=== PATIENT | female | born 1985 | race Caucasian/White ===

== ENCOUNTER 2016-03-19 10:36 | Emergency (ER) | payer OTHER ==
[~2016-03-19 10:36] MED LIST: FERR324T4 PO; MACR100C PO; PREN29CH PO
[2016-03-19] MEDS ORDERED: LACTATED RINGER'S 1000 ML INJ 1,000 ML IV SCH (10:51)
[2016-03-19] MEDS ORDERED: ONDANSETRON HCL 4 MG/2 ML VIAL IV ONE (11:00)
[2016-03-19 12:09] LABS: HEMATOCRIT 32.6 % (35.0-46.0); MEAN CELL VOLUME 87.9 FL (80.0-100.0); MEAN CORPUSCULAR HEMOGLOBIN 30.5 PG (27.0-34.0); MEAN CORPUSCULAR HGB CONC 34.7 % (32.0-36.0); PLATELET COUNT 151 TH/MM3 (150-450); RED BLOOD COUNT 3.71 MIL/MM3 (4.00-5.30); RED CELL DISTRIBUTION WIDTH 12.6 % (11.6-17.2); REVIEW FLAG FINAL; WHITE BLOOD COUNT 5.4 TH/MM3 (4.0-11.0)
--- NOTE | 2016-03-19 12:10 | PD ---
HPI Travel History International Travel<30 Days: No Contact w/Intl Traveler<30Days: No Known Affected Area: No History of Present Illness HPI This patient is a 31-year-old 5 para 20-2 EDC is June 18, 2016 presently at 27 weeks even she presents chief complaint of nausea and vomiting which began last night she awoke this morning and had a temperature of 101.7 Mild headache no diarrhea no burning when she urinates no cough no sore throat the baby is active no rupture of membranes no vaginal bleeding no contractions care with [facility] she was seen yesterday at which time she complained of itching of her hands and Dr. Donohue ordered violence which she has not had done yet she must be fasting and will have to have that done as an outpatient History Past Medical History Narrative Medical Patient is allergic to latex Reglan and amoxicillin no major medical problems Obstetric History Obstetric History First baby born October 2011 male weight 8 lbs. 10 oz. vaginal delivery Second baby born October 2009 female weight 9 lbs. 2 oz. vaginal delivery Spontaneous AB 2 Past Surgical History Narrative Surgical D&C 2 Family History Narrative Family History Diabetes cancer Family History: Negative Social History Alcohol Use: No Tobacco Use: No Substance Abuse: No Allergies-Medications (Allergen,Severity, Reaction): Coded Allergies: Amoxicillin (Verified Allergy, Severe, Anaphylaxis, 10/19/15) Reglan (Verified Allergy, Severe, Anaphylaxis, 10/19/15) Latex (Verified Allergy, Mild, Rash, 10/19/15) Home Meds Active Scripts Nitrofurantoin Monohyd Macro (Macrobid)100 Mg [id number] Mg PO BID 7 Days Prov:Anel Durán MD 10/19/15 Reported Medications Ferrous Sulfate 324 Mg [id number] Mg PO DAILY 10/23/14 Prenata1 Chw 1 Chw Chw1 Chw PO 04/10/14 Review of Systems General / Constitutional: Fever Gastrointestinal: Nausea, Vomiting Physical Exam Narrative GENERAL: Well-nourished, well-developed patient. Alert oriented 3 and cooperative in no acute distress CARDIOVASCULAR: Regular rate and rhythm without murmurs, gallops, or rubs. RESPIRATORY: Breath sounds equal bilaterally. No accessory muscle use. ABDOMEN/GI: Gravid consistent with 27 weeks soft nontender no palpable contractions no epigastric or right upper quadrant tenderness Gravid to [-] weeks size 27 Fundal Height: [-] GENITOURINARY: Pelvic exam is deferred as the patient has no rupture of membranes no vaginal bleeding no contractions External Genitalia: intact and normal in appearance BUS glands: [-] Cervix: [-] Dilatation: [-] Effacement: [-] Station: [-] Presentation: [-] Membranes: ruptured] Uterine Contractions: [-] None FHT's: Category: [-] 1 Baseline: [-]140 Reactive: [-] + Variability: [-] Moderate Decels: [-] 0 EXTREMITIES: No cyanosis or edema. 2+ NEUROLOGICAL: Awake and alert. Motor and sensory grossly within normal limits. Five out of 5 muscle strength in all muscle groups. Normal speech. Data Data Vital Signs Reviewed: Yes (blood pressures 104/69 pulse is 97.1 pulse 81 respiration is 20) Orders Vital Signs (Adult) .ON ADMISSION (03/19/16 10:51) ^ Labor Status (03/19/16 10:51) Urinalysis - C+S If Indicated (03/19/16 10:51) ^ Hydration (03/19/16 10:51) Cbc No Diff, Includes Plts (03/19/16 10:51) Comprehensive Metabolic Panel (03/19/16 10:51) Uric Acid (03/19/16 10:51) Lactated Ringer's 1000 Ml Inj (Lr 1000 M (03/19/16 10:51) Ondansetron Inj (Zofran Inj) (03/19/16 11:00) Ob/Psych Drug Screen, Urine (03/19/16 10:51) [facility] Medical Record Reviewed: No Interpretation(s) 31-year-old at 27 weeks Not in labor No rupture of membrane Category 1 tracing Nausea vomiting of Rule out UTI Narrative Course / MDM Patient feeling much better after Zofran and IV fluid hydration laboratory data within normal limits culture is not indicated on her urine Tyzine is 3.3 however patient now tolerating liquids and can rapidly be replaced with diet We'll discharge patient home kick count Zofran 4 mg by mouth every 6 hours when necessary for nausea She is to have the bile salts done as an outpatient and Dr. Donohue will follow- up Plan External monitoring IV fluid hydration CBC CMP uric acid urinalysis Urine drug screen Clear liquid Reevaluation Physician Communication Dr. Donohue aware that the patient is on labor and delivery Diagnosis Diagnosis: Primary Impression: Extreme immaturity of , gestational age 27 completed weeks Additional Impression: 27 weeks gestation of Disposition: 01 DISCHARGE HOME Condition: Stable Nasima Mcqueen MD Mar 19, 2016 12:10
[2016-03-19 12:32] LABS: BLOOD, URINE NEG (NEG); COMMENT (UR) CULT NOT INDICATED; CULTURE IF INDICATED CULT NOT INDICATED; GLUCOSE,URINE NEG (NEG); KETONE, URINE NEG (NEG); NITRITE,URINE NEG (NEG); SQUAMOUS EPITHELIAL CELL URINE 7 /hpf (0-5); URINE COLOR YELLOW (YELLW/STRAW)
[2016-03-19 12:36] LABS: ANION GAP 10 MEQ/L (5-15); AST (GOT) 13 U/L (15-37); BICARBONATE 24.8 MEQ/L (21.0-32.0); BLOOD UREA NITROGEN 5 MG/DL (7-18); CHLORIDE 102 MEQ/L (98-107); GLOMERULAR FILTRATION RATE 275 ML/MIN (>89); POTASSIUM 3.3 MEQ/L (3.5-5.1); SODIUM (NA) 137 MEQ/L (136-145); URIC ACID 4.7 MG/DL (2.6-6.0)
[2016-03-19 12:39] LABS: ALKALINE PHOSPHATASE 34 U/L (45-117); ALT (GPT) 16 U/L (10-53); TOTAL BILIRUBIN ADULT 0.4 MG/DL (0.2-1.0)
[2016-03-19 12:51] LABS: AMPHETAMINE, URINE NEG (NEG); BARBITURATES, URINE NEG (NEG); COCAINE, URINE NEG (NEG)
[2016-03-24 07:35] LABS: BATH SALTS (MDPV) UR NEG (NEG); ECSTASY (MDMA) UR NEG (NEG); HEROIN (6-ACETYLMORPHINE) UR NEG (NEG); K2 SPICE UR NEG (NEG); OBMETHADONE UR NEG (NEG); OXYCODONE (PERCODAN) NEG (NEG); PHENCYCLIDINE URINE NEG (NEG)
[2016-05-30] MEDS ORDERED: DOXY10TA (12:32)
== END 2016-03-19 13:15 | disposition home or self-care (01) ==
LOC: HOBED 10:36
DX: O21.0 Mild hyperemesis gravidarum (principal); Z3A.27 27 weeks gestation of pregnancy
CPT/HCPCS: 80053; 80307; 81001; 84550; 85027; 96361; 96374; 99284; G0481; J2405; J7120; 80352; 80354; 80356; 80358; 80359; 80371; 83992; G0480

== ENCOUNTER 2016-04-23 09:53 | Emergency (ER) | payer OTHER, BC ==
--- NOTE | 2016-04-23 11:24 | PD ---
HPI Chief Complaint Presents with lower abdominal pressure for several days. Date Seen: Apr 23, 2016 Travel History International Travel<30 Days: No Contact w/Intl Traveler<30Days: No Known Affected Area: No History of Present Illness HPI EGA 32w 0d. Patient with c/o lower abdominal pressure for several days. Denies contractions/LOF/VB. Para: 2 : 5 : 2 History Past Medical History Medical History: Denies Significant Hx Past Surgical History Surgical History: No Previous Surgery Family History Family History: Negative Social History Alcohol Use: No Tobacco Use: No Substance Abuse: No Allergies-Medications (Allergen,Severity, Reaction): Coded Allergies: Amoxicillin (Verified Allergy, Severe, Anaphylaxis, 10/19/15) Reglan (Verified Allergy, Severe, Anaphylaxis, 10/19/15) Latex (Verified Allergy, Mild, Rash, 10/19/15) Home Meds Active Scripts Nitrofurantoin Monohyd Macro (Macrobid)100 Mg [id number] Mg PO BID 7 Days Prov:Anel Durán MD 10/19/15 Reported Medications Ferrous Sulfate 324 Mg [id number] Mg PO DAILY 10/23/14 Prenata1 Chw 1 Chw Chw1 Chw PO 04/10/14 Physical Exam Narrative GENERAL: Well-nourished, well-developed patient. SKIN: Warm and dry. HEAD: Normocephalic and atraumatic. EYES: No scleral icterus. No injection or drainage. ENT: No nasal drainage noted. Mucous membranes pink. Airway patent. NECK: Supple, trachea midline. No JVD. CARDIOVASCULAR: Regular rate and rhythm without murmurs, gallops, or rubs. RESPIRATORY: Breath sounds equal bilaterally. No accessory muscle use. BREASTS: Bilateral exam showed no masses , no retractions, no nipple discharge. ABDOMEN/GI: Abdomen soft, non-tender, bowel sounds present, no rebound, no guarding Gravid to [-] weeks size Fundal Height: [-] GENITOURINARY: External Genitalia: intact and normal in appearance BUS glands: [-] Cervix: [-] Dilatation: [FT] Effacement: [20] Station: [-3] Presentation: [-] Membranes: [intact] Uterine Contractions: [-] FHT's: Category: [1] Baseline: [140s] Reactive: [yes] Variability: [moderate] Decels: [none] Kitzmiller- no contractions EXTREMITIES: No cyanosis or edema. BACK: Nontender without obvious deformity. No CVA tenderness. NEUROLOGICAL: Awake and alert. Motor and sensory grossly within normal limits. Five out of 5 muscle strength in all muscle groups. Normal speech. Data Data Vital Signs Reviewed: Yes Orders UA MDM Interpretation(s) Abdominal pain in . False labor. Plan Will d/c home. labor precautions given. All questions answered. Diagnosis Diagnosis: Primary Impression: 32 weeks gestation of Additional Impression: Abdominal pain during in third trimester Disposition: DISCHARGE HOME Condition: Stable Ranjana Lindsey MD Apr 23, 2016 11:24
[2016-04-23 12:54] LABS: BACTERIA, URINE RARE /hpf; BLOOD, URINE NEG (NEG); GLUCOSE,URINE NEG (NEG); KETONE, URINE NEG (NEG); NITRITE,URINE NEG (NEG); PH, URINE 7.5 (5.0-8.5); SQUAMOUS EPITHELIAL CELL URINE 3 /hpf (0-5); TRANSITIONAL EPI CELLS, URINE <1 /hpf; URINE COLOR YELLOW (YELLW/STRAW)
[2016-04-23 12:57] LABS: COMMENT (UR) CULT NOT INDICATED; CULTURE IF INDICATED CULT NOT INDICATED
[2016-05-30] MEDS ORDERED: DOXY10TA (12:32)
== END 2016-04-23 13:40 | disposition home or self-care (01) ==
LOC: HOBED 09:53
DX: O26.893 Other specified pregnancy related conditions, third trimester (principal); R10.9 Unspecified abdominal pain; Z3A.32 32 weeks gestation of pregnancy
CPT/HCPCS: 59025; 81001

== ENCOUNTER 2016-05-30 15:29 | Inpatient (IN) | payer OTHER, MEDICAID ==
[2016-05-30] VITALS (54 sets, daily range): BP systolic 96–152; BP diastolic 52–97; PULSE 65–144; RESP 18; TEMP 97.5–97.8; O2SAT 99
[~2016-05-30] VITALS: Ht 149.9 cm; Wt 70.3 kg
[~2016-05-30 15:29] MED LIST changes: -IBUP-232 PO; -SENN1TAB PO
[2016-05-30] MEDS ORDERED: MEASLES, MUMPS, RUBELLA VACCINE 0.5 ML VIAL SQ ONE (16:00)
[2016-05-30] MEDS ORDERED: DIPHTH/TETANUS/ACEL PERTUSSIS (BOOSTER) 0.5 ML VIAL/PFS IM ONE (16:00)
[2016-05-30] MEDS ORDERED: LACTATED RINGER'S 1000 ML INJ 1,000 ML IV PRN (16:08)
[2016-05-30] MEDS ORDERED: OXYTOCIN 30 UNITS-500ML PREMIX 500 ML IV ONE (16:15)
[2016-05-30] MEDS ORDERED: MINERAL OIL 10 ML VIAL TOPICAL PRN (16:15)
[2016-05-30] MEDS ORDERED: SODIUM CHLORID 0.9% 500 ML INJ 500 ML IV PRN (16:15)
[2016-05-30] MEDS ORDERED: LIDOCAINE HCL 1% 50 ML VIAL INFIL PRN (16:15)
[2016-05-30] MEDS ORDERED: CITRIC ACID-SODIUM CITRATE LIQ 30 ML UDC PO SCH (16:15)
[2016-05-30] MEDS ORDERED: LIDOCAINE HCL 1% 50 ML VIAL I-DERMAL PRN (16:15)
--- NOTE | 2016-05-30 16:25 | HHI.HP ---
History & Physical H&P Patient Name: Zo Bundy Unit Number: [id number] Date of : 1985 Patient Status: Registered Emergency Room Attending Doctor: Jack Mcallister MD HPI HPI Chief Complaint abdominal pressure, lost mucous plug Date Seen: May 30, 2016 Time Seen: 12:17 Travel History International Travel<30 Days: No Known Affected Area: No History of Present Illness HPI 31-year-old 5 para 2 at 37 weeks 2 days gestation with complaint of watery discharge and contractions. She denies any bleeding. Para: 5 : 2 Miscarriage: 2 History (Limited) History Past Medical History Medical History: Denies Significant Hx Obstetric History Obstetric History 2 prior first trimester SABs with D&C GBS negative 2 prior term vaginal deliveries Uncomplicated course with estimated weight at the 92nd percentile in third trimester. Past Surgical History Narrative Surgical D&C x2 Family History Family History: Negative Social History Alcohol Use: No Tobacco Use: No Substance Abuse: No Allergies-Medications Allergies-Medications (Allergen,Severity, Reaction): Coded Allergies: Amoxicillin (Verified Allergy, Severe, Anaphylaxis, 10/19/15) Reglan (Verified Allergy, Severe, Anaphylaxis, 10/19/15) Latex (Verified Allergy, Mild, Rash, 10/19/15) Home Meds Active Scripts Nitrofurantoin Monohyd Macro (Macrobid)100 Mg [id number] Mg PO BID 7 Days Prov:Anel Durán MD 10/19/15 Reported Medications Ferrous Sulfate 324 Mg Huq274 Mg PO DAILY 10/23/14 Without A Vit W/ Fe F (Prenata)1 Chw Chw1 Chw PO 04/10/14 ROS Review of Systems Except as stated in HPI: all other systems reviewed are Neg Gastrointestinal: Vomiting (present daily throughout the ), Diarrhea ( less than 2 per day 2 days) Physical Exam Physical Exam Narrative GENERAL: Well-nourished, well-developed patient. SKIN: Warm and dry. HEAD: Normocephalic and atraumatic. EYES: No scleral icterus. No injection or drainage. ENT: No nasal drainage noted. Mucous membranes pink. Airway patent. NECK: Supple, trachea midline. No JVD. CARDIOVASCULAR: Regular rate and rhythm without murmurs, gallops, or rubs. RESPIRATORY: Breath sounds equal bilaterally. No accessory muscle use. ABDOMEN/GI: Abdomen soft, non-tender, bowel sounds present, no rebound, no guarding Gravid to [-] weeks size Fundal Height: [-] GENITOURINARY: External Genitalia: intact and normal in appearance BUS glands: [-] Cervix: [-] Dilatation: [5] Effacement: [60-] Station: [-2-] Presentation: [-v] Membranes: [ruptured] Uterine Contractions: [mild irreg-] FHT's: Category: [1-] Baseline: [-] Reactive: [-y] Variability: [-] Decels: [-] EXTREMITIES: No cyanosis or edema. BACK: Nontender without obvious deformity. No CVA tenderness. NEUROLOGICAL: Awake and alert. Motor and sensory grossly within normal limits. Five out of 5 muscle strength in all muscle groups. Normal speech. Data Data Data Vital Signs Reviewed: Yes Assessment: 37-2/7 week gestation multiparous female with ruptured membranes and irregular contractions Plan: Admit for labor management. Dr. Snider is aware of the patient's presence. Jack Mcallister MD, Stephen A MD May 30, 2016 16:24
[2016-05-30] MEDS ORDERED: SODIUM CHLOR 0.9% 1000 ML INJ 1,000 ML IV PRN (16:28)
[2016-05-30] MEDS ORDERED: OXYTOCIN 30 UNITS-500ML PREMIX 500 ML IV SCH ×2 (17:00→18:00)
[2016-05-30] MEDS ORDERED: LACTATED RINGER'S 1000 ML INJ 1,000 ML IV SCH (17:00)
[2016-05-30 17:03] LABS: AUTOMATED NEUTROPHIL # 7.9 TH/MM3 (1.8-7.7); BASOPHIL % 0.3 % (0.0-2.0); EOSINOPHIL % 0.5 % (0.0-4.0); HEMATOCRIT 30.6 % (35.0-46.0); HEMO FLAGS DIFF FINAL; LYMPH % 11.1 % (9.0-44.0); MEAN CELL VOLUME 81.4 FL (80.0-100.0); MEAN CORPUSCULAR HEMOGLOBIN 27.9 PG (27.0-34.0); MEAN CORPUSCULAR HGB CONC 34.2 % (32.0-36.0); MONO % 4.4 % (0.0-8.0); NEUT % 83.7 % (16.0-70.0); PLATELET COUNT 165 TH/MM3 (150-450); RED BLOOD COUNT 3.76 MIL/MM3 (4.00-5.30); RED CELL DISTRIBUTION WIDTH 13.9 % (11.6-17.2); WHITE BLOOD COUNT 9.4 TH/MM3 (4.0-11.0)
[2016-05-30] MEDS ORDERED: fentaNYL 2MCG-BUPIV 0.125% INJ 100 ML ONE (17:05)
[2016-05-30] MEDS ORDERED: ePHEDrine/NS 25 MG/5 ML SYR ONE (17:23)
[2016-05-30] MEDS ORDERED: fentaNYL 2MCG-BUPIV 0.125% 100 ML EPIDURAL SCH (18:00)
[2016-05-30] MEDS ORDERED: NO SYSTEM NARCOTICS XX PRN (18:00)
[2016-05-30] MEDS ORDERED: ePHEDrine/NS 25 MG/5 ML SYR IV PRN (18:00)
[2016-05-30] MEDS ORDERED: DO NOT ADMINISTER ANTICOAGULANTS XX PRN (18:00)
[2016-05-30 18:25] LABS: BACTERIA, URINE RARE /hpf; BLOOD, URINE NEG (NEG); COMMENT (UR) CULTURE INDICATED; CULTURE IF INDICATED CULTURE INDICATED; GLUCOSE,URINE NEG (NEG); KETONE, URINE TRACE mg/dL (NEG); MUCUS URINE MANY /lpf (OCC); NITRITE,URINE NEG (NEG); SQUAMOUS EPITHELIAL CELL URINE 6 /hpf (0-5); URINE COLOR YELLOW (YELLW/STRAW)
[2016-05-30] MEDS ORDERED: ACETAMINOPHEN 500 MG CPLT PO ONE (20:00)
--- NOTE | 2016-05-30 20:12 | PD.LABORPN ---
Subjective Subjective feeling comfortable w/ epidural Objective Vital Signs Vital Signs Date Time Temp Pulse Resp B/P Pulse Ox O2 Delivery O2 Flow Rate FiO2 05/30/16 19:54 71 113/64 05/30/16 19:45 73 111/71 05/30/16 19:30 78 120/82 05/30/16 19:25 99 05/30/16 19:25 79 05/30/16 19:20 82 05/30/16 19:15 99 05/30/16 19:15 83 132/85 05/30/16 19:15 77 05/30/16 19:10 83 05/30/16 19:10 99 05/30/16 19:05 99 05/30/16 19:05 80 05/30/16 19:01 97.8 05/30/16 19:00 99 05/30/16 19:00 85 05/30/16 19:00 80 120/78 05/30/16 18:55 79 05/30/16 18:50 77 05/30/16 18:45 82 131/90 05/30/16 18:45 76 17 18:40 81 17 18:35 78 05/30/16 18:30 78 122/82 05/30/16 18:30 74 05/30/16 18:25 78 05/30/16 18:20 77 05/30/16 18:15 98 133/83 05/30/16 18:15 73 05/30/16 18:11 97.5 05/30/16 18:10 77 05/30/16 18:08 75 18 125/74 05/30/16 18:05 73 05/30/16 18:00 83 17 18:00 78 144/87 05/30/16 17:55 79 17 17:50 74 17 17:46 81 131/70 17 17:46 81 17 17:45 74 17 17:45 74 17 17:40 77 17 17:40 84 134/84 17 17:35 93 128/97 17 17:35 101 17 17:30 74 106/70 17 17:30 106 05/30/16 17:28 78 131/72 05/30/16 17:25 72 125/84 05/30/16 17:25 68 05/30/16 17:21 144 96/52 05/30/16 17:20 65 05/30/16 17:15 77 134/78 05/30/16 17:15 66 05/30/16 17:12 81 152/85 05/30/16 16:48 18 05/30/16 16:46 72 118/80 Objective Pelvic Exam: Cervix: [mid] Dilatation: [7-8] Effacement: [50] Station: [-1] Presentation: [vtx] Membranes: SROM'd clear Uterine Contractions: [q3 min] FHT's: Category: [I] Baseline: [130s] Reactive: [y] Variability: [y] Decels: [n] Assessment/Plan Problem List: (1) Labor and delivery indication for care or intervention Assessment and Plan 31 yo admit for SROM/labor at 37+ weeks 1) SROM/labor: pt progressed initially from 5 > 7-8 but has stalled; [facility] placed this check, pitocin at 10 milliunits/min, continue to augment as necessary 2) GBS neg 3) macrosomia, EFW >90%tile; proven to 9#2oz with G4 4) status: female, Cat I tracing Mihaela Snider MD May 30, 2016 20:12
--- NOTE | 2016-05-30 22:05 | PD.OB.DELI ---
Delivery Date: May 30, 2016 Anesthesia: Epidural Episiotomy: None Vaginal Delivery: Spontaneous Presentation: Occiput anterior, Compound (L hand) Nuchal Cord: None Delayed cord clamping (45 sec): Yes : Female One Minute : 8 Five Minute : 9 Weight: 7#6oz Care: Spontaneous crying, Responded to stimulation Placenta: Spontaneous delivery, Intact, 3 vessel cord Laceration: No lacerations Additional Information EBL 100 mL Mihaela Snider MD May 30, 2016 22:04
[2016-05-30] MEDS ORDERED: SODIUM CHLORIDE 0.9% FLUSH 5 ML FLUSH IV PRN (22:15)
[2016-05-30] MEDS ORDERED: ZOLPIDEM TARTRATE 5 MG TAB PO PRN (22:15)
[2016-05-30] MEDS ORDERED: WITCH HAZEL 50%/GLYCERIN 12.5% 40 PAD JAR TOPICAL PRN (22:15)
[2016-05-30] MEDS ORDERED: oxyCODONE/ACETAMINOPHEN 5 MG/325 MG TAB PO PRN (22:15)
[2016-05-30] MEDS ORDERED: ALUMINUM/MAGNESIUM/SIMETH 30 ML CUP PO PRN (22:15)
[2016-05-30] MEDS ORDERED: SODIUM CHLORIDE 0.9% FLUSH 5 ML FLUSH IV SCH (22:15)
[2016-05-30] MEDS ORDERED: BENZOCAINE 20% TOPICAL SPRAY 60 ML CAN TOPICAL PRN (22:15)
[2016-05-31] MEDS: IBUPROFEN 600 MG TAB PO PRN ×3 (00:14→15:28)
[2016-05-31] MEDS: oxyCODONE/ACETAMINOPHEN 5 MG/325 MG TAB PO PRN (06:13)
[2016-05-31] MEDS: ONDANSETRON ODT 4 MG TAB PO PRN ×2 (07:53→20:04)
--- NOTE | 2016-05-31 08:55 | HHI.DCPOC ---
Discharge Care Plan Diagnosis: (1) (normal spontaneous vaginal delivery) Your Health Problems Are: Vaginal delivery Report Symptoms to Your Doctor -Temperate above 100.5 degrees -Redness, of incision or excessive or foul smelling drainage -Unusual pain or calf pain -Increased vaginal bleeding -Painful or difficulty urinating -Feelings of extreme sadness or anxiety after 2 weeks Goals to Promote Your Health * To prevent worsening of your condition and complications * To maintain your health at the optimal level Directions to Meet Your Goals Take your medications as prescribed Follow your dietary instruction Follow activity as directed Ensure plenty of rest for recovery Drink fluids for hydration Keep your appointments as scheduled Take your immunizations and boosters as scheduled If your symptoms worsen call your PCP, if no PCP go to Urgent Care Center or Emergency Room Smoking is Dangerous to Your Health. Avoid second hand smoke Call the 24-hour crisis hotline for domestic abuse at Mihaela Snider MD May 31, 2016 08:55
[2016-05-31] MEDS ORDERED: SENN1TAB PO (12:22)
[2016-05-31] MEDS ORDERED: IBUP-232 PO (12:22)
--- NOTE | 2016-05-31 12:23 | HHI.OB ---
Subjective Post Day: 1 Remarks s/p uncomplicated Objective Vitals/I&O Vital Signs Date Time Temp Pulse Resp B/P Pulse Ox O2 Delivery O2 Flow Rate FiO2 05/30/16 23:30 75 113/60 05/30/16 23:15 78 138/75 05/30/16 22:46 68 117/78 05/30/16 22:30 68 124/86 05/30/16 22:16 75 114/64 05/30/16 22:00 76 147/78 05/30/16 22:00 18 05/30/16 21:46 75 104/73 05/30/16 21:30 72 129/84 05/30/16 21:17 97.7 18 05/30/16 21:15 74 125/82 05/30/16 21:06 77 137/83 05/30/16 20:46 79 117/84 05/30/16 20:31 76 146/74 05/30/16 20:15 72 102/63 05/30/16 20:00 69 122/65 05/30/16 19:54 71 113/64 05/30/16 19:45 73 111/71 05/30/16 19:30 78 120/82 05/30/16 19:25 99 05/30/16 19:25 79 05/30/16 19:20 82 05/30/16 19:15 99 05/30/16 19:15 83 132/85 05/30/16 19:15 77 05/30/16 19:10 83 05/30/16 19:10 99 05/30/16 19:05 99 05/30/16 19:05 80 05/30/16 19:01 97.8 05/30/16 19:00 99 05/30/16 19:00 85 05/30/16 19:00 80 120/78 05/30/16 18:55 79 05/30/16 18:50 77 05/30/16 18:45 82 131/90 05/30/16 18:45 76 05/30/16 18:40 81 05/30/16 18:35 78 05/30/16 18:30 78 122/82 05/30/16 18:30 74 05/30/16 18:25 78 05/30/16 18:20 77 3/17/17 18:15 98 133/83 05/30/16 18:15 73 05/30/16 18:11 97.5 05/30/16 18:10 77 05/30/16 18:08 75 18 125/74 05/30/16 18:05 73 05/30/16 18:00 83 05/30/16 18:00 78 144/87 05/30/16 17:55 79 05/30/16 17:50 74 05/30/16 17:46 81 131/70 05/30/16 17:46 81 05/30/16 17:45 74 05/30/16 17:45 74 05/30/16 17:40 77 05/30/16 17:40 84 134/84 05/30/16 17:35 93 128/97 05/30/16 17:35 101 05/30/16 17:30 74 106/70 05/30/16 17:30 106 05/30/16 17:28 78 131/72 05/30/16 17:25 72 125/84 05/30/16 17:25 68 05/30/16 17:21 144 96/52 05/30/16 17:20 65 05/30/16 17:15 77 134/78 05/30/16 17:15 66 05/30/16 17:12 81 152/85 05/30/16 16:48 18 05/30/16 16:46 72 118/80 Objective Remarks GENERAL: Well-nourished, well-developed patient. CARDIOVASCULAR: Regular rate and rhythm without murmurs, gallops, or rubs. RESPIRATORY: Breath sounds equal bilaterally. No accessory muscle use. ABDOMEN/GI: Abdomen soft, non-tender. Fundus: Firm, non-tender at umbilicus. GENITOURINARY: Light to moderate bleeding. EXTREMITIES: No cyanosis or edema, non-tender, without signs of DVT. Medications and IVs Current Medications Medications (Trade) Dose Ordered Sig/[place] Route Start Time Stop Time Status Last Admin (NS Flush) 2 ml BID IV 05/30/16 22:15 (NS Flush) 2 ml UNSCH PRN IV 05/30/16 22:15 (Tylenol) 650 mg Q4H PRN PO 05/30/16 22:15 (Motrin) 600 mg Q6H PRN PO 05/30/16 22:15 05/31/16 06:13 (Percocet 5-325 Mg) 1 tab Q4H PRN PO 05/30/16 22:15 05/31/16 06:13 (Percocet 5-325 Mg) 2 tab Q4H PRN PO 05/30/16 22:15 (Americaine 20% Top Spr) 1 spray Q4H PRN TOPICAL 05/30/16 22:15 05/31/16 00:14 (Tucks Pads) 1 applic QID PRN TOPICAL 05/30/16 22:15 05/31/16 00:14 (Mary Carmen-Colace) 2 tab Q12H PRN PO 05/30/16 22:15 (Ambien) 5 mg HS PRN PO 05/30/16 22:15 (Mag-Al Plus Susp Liq) 15 ml Q8H PRN PO 05/30/16 22:15 (Zofran Odt) 4 mg Q6H PRN PO 05/30/16 22:15 05/31/16 07:53 Assessment/Plan Problem List: (1) (normal spontaneous vaginal delivery) (2) Labor and delivery indication for care or intervention Assessment and Plan PPD#1 routine PP care anticipate d/c to home tmrw 06/01/16 Mihaela Snider MD May 31, 2016 12:23
[2016-05-31] MEDS: DOCUSATE SODIUM 50 MG/SENNA 8.6 MG TAB PO PRN (15:27)
[2016-05-31] MEDS: ACETAMINOPHEN 325 MG TAB PO PRN (15:28)
[2016-05-31 20:10] VITALS: BP 144/93; PULSE 70; RESP 16; TEMP 97.2
[2016-06-01 03:00] VITALS: TEMP 97.6
[2016-06-01] MEDS: IBUPROFEN 600 MG TAB PO PRN ×2 (03:00→09:47)
[2016-06-01] MEDS: ONDANSETRON ODT 4 MG TAB PO PRN (04:30)
[2016-06-01] MEDS: DOCUSATE SODIUM 50 MG/SENNA 8.6 MG TAB PO PRN (04:30)
[2016-06-01 07:24] VITALS: BP 107/78; PULSE 73; RESP 16; TEMP 97.8
[2016-06-01] MEDS: ACETAMINOPHEN 325 MG TAB PO PRN (09:18)
[2016-06-01] MEDS: oxyCODONE/ACETAMINOPHEN 5 MG/325 MG TAB PO PRN (09:47)
--- NOTE | 2016-06-01 10:05 | HHI.OB ---
Subjective Post Day: 2 Remarks s/p uncomplicated 05/30/16 Objective Vitals/I&O Vital Signs Date Time Temp Pulse Resp B/P Pulse Ox O2 Delivery O2 Flow Rate FiO2 06/01/16 07:24 97.8 73 16 107/78 06/01/16 03:00 97.6 05/31/16 20:10 97.2 70 16 144/93 Objective Remarks GENERAL: Well-nourished, well-developed patient. CARDIOVASCULAR: Regular rate and rhythm without murmurs, gallops, or rubs. RESPIRATORY: Breath sounds equal bilaterally. No accessory muscle use. ABDOMEN/GI: Abdomen soft, non-tender. Fundus: Firm, non-tender at umbilicus. GENITOURINARY: Light bleeding. EXTREMITIES: No cyanosis or edema, non-tender, without signs of DVT. Medications and IVs Current Medications Medications (Trade) Dose Ordered Sig/Latonia Route Start Time Stop Time Status Last Admin (NS Flush) 2 ml BID IV 05/30/16 22:15 (NS Flush) 2 ml UNSCH PRN IV 05/30/16 22:15 (Tylenol) 650 mg Q4H PRN PO 05/30/16 22:15 06/01/16 09:18 (Motrin) 600 mg Q6H PRN PO 05/30/16 22:15 06/01/16 09:47 (Percocet 5-325 Mg) 1 tab Q4H PRN PO 05/30/16 22:15 06/01/16 09:47 (Percocet 5-325 Mg) 2 tab Q4H PRN PO 05/30/16 22:15 06/01/16 03:00 (Americaine 20% Top Spr) 1 spray Q4H PRN TOPICAL 05/30/16 22:15 05/31/16 00:14 (Tucks Pads) 1 applic QID PRN TOPICAL 05/30/16 22:15 05/31/16 00:14 (Mary Carmen-Colace) 2 tab Q12H PRN PO 05/30/16 22:15 06/01/16 04:30 (Ambien) 5 mg HS PRN PO 05/30/16 22:15 (Mag-Al Plus Susp Liq) 15 ml Q8H PRN PO 05/30/16 22:15 (Zofran Odt) 4 mg Q6H PRN PO 05/30/16 22:15 06/01/16 04:30 Assessment/Plan Problem List: (1) (normal spontaneous vaginal delivery) (2) Labor and delivery indication for care or intervention Assessment and Plan PPD#2 routine PP care had issue overnight with nausea/vomiting; improved now and tolerating breakfast d/c to home today with routine office f/u Discharge Planning routine Mihaela Snider MD Jun 01, 2016 10:05
== END 2016-06-01 10:25 | disposition home or self-care (01) | DRG 775 ==
LOC: HOBED 15:29 → H2EA 16:21 → H1EA 23:54
PROVIDERS: ADMIT Obstetrics & Gynecology; ATTEND Obstetrics & Gynecology
PROC: 10E0XZZ Delivery of Products of Conception, External Approach (ICD-10-PCS; principal; 2016-05-30)
PROC: 00HU33Z Insertion of Infusion Device into Spinal Canal, Percutaneous Approach (ICD-10-PCS; 2016-05-30)
PROC: 3E0R3CZ (ICD-10-PCS; 2016-05-30)
DX: O32.6XX0 Maternal care for compound presentation, not applicable or unspecified (principal); R11.2 Nausea with vomiting, unspecified; Z37.0 Single live birth; Z3A.37 37 weeks gestation of pregnancy; Z88.0 Allergy status to penicillin; Z88.8 Allergy status to other drugs, medicaments and biological substances; Z91.040 Latex allergy status
CPT/HCPCS: 81001; 84112; 85025; 86900; 86901; 87086; 90715; 99284; 99285; J2590; J7120

== ENCOUNTER → 2016-05-30 | Emergency (ER) | payer OTHER, MEDICAID ==
[~2016-05-30] MED LIST changes: +DOXY10TA; +IBUP-232 PO; +SENN1TAB PO
--- NOTE | 2016-05-30 12:34 | PD ---
HPI Chief Complaint abdominal pressure, lost mucous plug Date Seen: May 30, 2016 Time Seen: 12:17 Travel History International Travel<30 Days: No Contact w/Intl Traveler<30Days: No Known Affected Area: No History of Present Illness HPI 31-year-old 5 para 2 at 37 weeks 2 days gestation with complaint of mucousy discharge and lower abdominal constant pain. She denies any bleeding, leakage of fluid. No dysuria hematuria or frequency. She reports 2 days of diarrhea less than 2 episodes per day. She states that she had been examined in the office this week and was 4 cm dilated. Para: 5 : 2 Miscarriage: 2 History Past Medical History Medical History: Denies Significant Hx Obstetric History Obstetric History 2 prior first trimester SABs with D&C 2 prior term vaginal deliveries Uncomplicated course with estimated weight at the 92nd percentile in third trimester. Past Surgical History Narrative Surgical D&C x2 Family History Family History: Negative Social History Alcohol Use: No Tobacco Use: No Substance Abuse: No Allergies-Medications (Allergen,Severity, Reaction): Coded Allergies: Amoxicillin (Verified Allergy, Severe, Anaphylaxis, 10/19/15) Reglan (Verified Allergy, Severe, Anaphylaxis, 10/19/15) Latex (Verified Allergy, Mild, Rash, 10/19/15) Home Meds Active Scripts Sennosides-Docusate Sodium (Senna Plus 8.6-50 mg)1 Tab Tab2 Tab PO Q12H PRN ( CONSTIPATION) #20 TAB Ref 1 Prov:Mihaela Snider MD 05/31/16 Ibuprofen 600 Mg [id number] Mg PO Q6H PRN ( CRAMPING) #30 TAB Ref 1 Prov:Mihaela Snider MD 05/31/16 Reported Medications Ferrous Sulfate 324 Mg Uny652 Mg PO DAILY 10/23/14 Without A Vit W/ Fe F (Prenata)1 Chw Chw1 Chw PO 04/10/14 Discontinued Reported Medications Doxylamine-Pyridoxine (Diclegis)10-10 Mg Tab 05/30/16 Discontinued Scripts Nitrofurantoin Monohyd Macro (Macrobid)100 Mg Kin351 Mg PO BID 7 Days Prov:Anel Durán MD 10/19/15 Review of Systems Except as stated in HPI: all other systems reviewed are Neg Gastrointestinal: Vomiting (present daily throughout the ), Diarrhea ( less than 2 per day 2 days) Physical Exam Narrative GENERAL: Well-nourished, well-developed patient. SKIN: Warm and dry. HEAD: Normocephalic and atraumatic. EYES: No scleral icterus. No injection or drainage. ENT: No nasal drainage noted. Mucous membranes pink. Airway patent. NECK: Supple, trachea midline. No JVD. CARDIOVASCULAR: Regular rate and rhythm without murmurs, gallops, or rubs. RESPIRATORY: Breath sounds equal bilaterally. No accessory muscle use. ABDOMEN/GI: Abdomen soft, non-tender, bowel sounds present, no rebound, no guarding Gravid to [-] weeks size Fundal Height: [-] GENITOURINARY: External Genitalia: intact and normal in appearance BUS glands: [-] Cervix: [-] Dilatation: [2-3-] Effacement: [60-] Station: [-3-] Presentation: [-v] Membranes: [intact] Uterine Contractions: [mild irreg-] FHT's: Category: [1-] Baseline: [-] Reactive: [-y] Variability: [-] Decels: [-] EXTREMITIES: No cyanosis or edema. BACK: Nontender without obvious deformity. No CVA tenderness. NEUROLOGICAL: Awake and alert. Motor and sensory grossly within normal limits. Five out of 5 muscle strength in all muscle groups. Normal speech. Data Data Vital Signs Reviewed: Yes MDM Medical Record Reviewed: Yes Narrative Course / MDM 31-year-old multiparous female at 37+ weeks gestation with lower abdominal discomfort without labor Plan: Labor precautions Diagnosis Diagnosis: Primary Impression: Abdominal pain during in third trimester Additional Impression: with 37 weeks completed gestation Disposition: 01 DISCHARGE HOME Condition: Good Jack Mcallister MD May 30, 2016 12:34
== END | disposition home or self-care (01) ==
LOC: HOBED 12:02
DX: O26.893 Other specified pregnancy related conditions, third trimester (principal); R10.30 Lower abdominal pain, unspecified; N89.8 Other specified noninflammatory disorders of vagina; R19.7 Diarrhea, unspecified; Z3A.37 37 weeks gestation of pregnancy
CPT/HCPCS: 99284